=== PATIENT | female | born 1975 | race Two or more races ===

== ENCOUNTER 2020-07-21 16:03 | Emergency (ER) | payer MEDICAID ==
[~2020-07-21] VITALS: Ht 157.5 cm; Wt 90.7 kg
[2020-07-21] MEDS ORDERED: Ketorolac 30mg Inj IM ONE (16:45)
[2020-07-21] MEDS ORDERED: Lidocaine 1% MPF 10mg/ml 5ml INJ ONE (16:45)
--- NOTE | 2020-07-21 16:50 | Emergency Room Report ---
History of Present Illness General Chief Complaint: Skin Rash/Abscess Source: Patient Present Illness HPI 45-year-old female with history of pilonidal cyst and anal fistula here complaining of a mass in anal region x1 week without any pus drainage. Denies any fever and chills, rates the pain 7 without radiation. Denies any pus drainage, fever and chills, chest pain shortness of breath. Denies any blood in stool. Reports that has history of anal fistula and had to have it surgically removed years ago. Patient has no distress. After administration of Toradol patient reports relief of pain and no longer tachycardic. Denies . 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 Patient History Past Medical History: see triage record Past Surgical History: none Pertinent Family History: none Now: No Immunizations: UTD Reviewed Nursing Documentation: PMH: Agreed; PSxH: Agreed Nursing Documentation-PMH Past Medical History: No Stated History Review of Systems All Other Systems: negative except mentioned in HPI Physical Exam Vital Signs Date Time Temp Pulse Resp B/P (MAP) Pulse Ox O2 Delivery O2 Flow Rate FiO2 07/21/20 16:27 98.2 125 20 135/56 (82) 97 Room Air Sp02 EP Interpretation: reviewed, normal General Appearance: no apparent distress, alert, GCS 15, non-toxic Head: normocephalic, atraumatic Eyes: bilateral eye normal inspection, bilateral eye PERRL ENT: hearing grossly normal, normal pharynx, no angioedema, normal voice Neck: supple Respiratory: chest non-tender, lungs clear, normal breath sounds, speaking full sentences Cardiovascular #1: no gallop Gastrointestinal: non tender, soft Rectal: other - anal fistula noted, no pus drainage Genitourinary: no CVA tenderness Musculoskeletal: back normal Neurologic: alert, motor strength/tone normal, oriented x3, sensory intact, responsive, speech normal Psychiatric: judgement/insight normal, memory normal, mood/affect normal, no suicidal/homicidal ideation Skin: normal color Lymphatic: no adenopathy Medical Decision Making PA Attestation All my diagnosis and treatment plans were reviewed ad discussed with my supervising physician Dr. Bull Diagnostic Impression: Primary Impression: Pilonidal fistula ER Course 45-year-old female with history of pilonidal cyst and anal fistula here complaining of a mass in anal region x1 week without any pus drainage. Denies any fever and chills, rates the pain 7 without radiation. Denies any pus drainage, fever and chills, chest pain shortness of breath. Denies any blood in stool. Reports that has history of anal fistula and had to have it surgically removed years ago. Patient has no distress. After administration of Toradol patient reports relief of pain and no longer tachycardic. Denies . Ddx considered but are not limited to : Cellulitis, Nathaniel cyst, Nathaniel abscess, Nathaniel fistula, superficial infection, abscess Vital signs: are WNL, pt. is afebrile H&PE are most consistent with: Pilonidal fistula ORDERS: Keflex, Bactrim DS, ibuprofen, Tylenol 3 ED INTERVENTIONS: Toradol IM, Rocephin DISCHARGE: At this time pt. is stable for d/c to home. Will provide printed patient care instructions, and any necessary prescriptions. Care plan and follow up instructions have been discussed with the patient prior to discharge. Advised patient to follow-up primary doctor for referral to general surgeon at this time it is not advised to have it drained in this setting and patient needs to have surgical consult. Patient in no distress no further work-up needed ED however advised patient to return to the emergency room if fever and chills, worsening symptom pus drainage from the area. Last Vital Signs Date Time Temp Pulse Resp B/P (MAP) Pulse Ox O2 Delivery O2 Flow Rate FiO2 07/21/20 16:27 98.2 125 20 135/56 (82) 97 Room Air Disposition: HOME, SELF-CARE Condition: Stable Scripts Acetaminophen With Codeine (T#3) (TYLENOL #3 TAB*) Y Tab 1 TAB ORAL Q12HR PRN for For Pain for 3 Days, #6 TAB Prov: Faby Quintero 07/21/20 Ibuprofen (Ibu) 800 Mg Tablet 800 MG PO TID, #30 TAB Prov: Faby Quintero 07/21/20 Trimethoprim/Sulfamethoxazole 160/800* (BACTRIM DS TABLET*) 1 Each Tablet 1 TAB ORAL TWICE A DAY for 7 Days, #14 TAB Prov: Faby Quintero 07/21/20 Cephalexin* (KEFLEX*) 500 Mg Capsule 500 MG ORAL EVERY 6 HOURS for 7 Days, #28 CAP Prov: Faby Quintero 07/21/20 Patient Instructions: Anal Fistula Additional Instructions: Take medication as directed, follow-up with your primary care provider for referral to general surgeon, worsening symptoms return to the emergency room Faby Quintero Jul 21, 2020 16:50
[2020-07-21] MEDS ORDERED: ACETAMINOPHEN-1 EAC1 ORAL (16:52)
[2020-07-21] MEDS ORDERED: IBU800 MG PO (16:52)
[2020-07-21] MEDS ORDERED: BACTRIM DS TAB1 EAC1 ORAL (16:52)
[2020-07-21] MEDS ORDERED: CEPHALEXIN500 MG ORAL (16:52)
--- NOTE | 2020-07-21 17:00 | NUR ---
ED Nurse Note:pt. received pain meds and antibiotics Pt cleared by health care Provider for discharge. DC instructions/prescription was given and explained to pt and verbalized understanding of teachings. All medical deviecs such as ID band removed. Pt is AAO x4, ambulatory and left with all personal belongings.
[2020-07-21 18:37] VITALS: BP 135/56
== END 2020-07-21 17:00 | disposition home or self-care (01) ==
LOC: EMR 16:59
DX: K60.4 Rectal fistula (principal)
CPT/HCPCS: 96372; J0696; J1885; Z7502; 99283